=== PATIENT | male | born 1985 | race Caucasian/White ===

== ENCOUNTER 2021-03-22 05:47 | Emergency (ER) | payer SELFPAY ==
[~2021-03-22] VITALS: Ht 175.2 cm; Wt 68.9 kg
[2021-03-22 06:26] VITALS: BP 142/92
--- NOTE | 2021-03-22 07:00 | ED Integumentary General ---
General Chief Complaint: Skin/Wound Problems Stated Complaint: R LEG INFECTION / TIC BITE Nursing Triage Note: PATIENT STATES THAT 9 DAYS AGO, HE NOTICED A RED AREA ON HIS RIGHT CALF. 7 DAYS AGO HE WAS SEEN BY A DOCTOR WHO TOOK A TICK OUT OF THE AREA AND GAVE HIM AN ANTIBIOTIC SHOT. HE IS UNABLE TO RECALL THE NAME OF THE ANTIBIOTIC. OVER THE WEEKEND, THE WOUND HAS CONTINUED TO GET WORSE. Source: patient Exam Limitations: no limitations (ELVA ANGUIANO MED STUDENT) History of Present Illness Date Seen by Provider: March 22, 2021 Time Seen by Provider: 06:35 Initial Comments 35 y/o male presents with R lower leg lesion onset 9 days ago. 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 Pain caused him to go to [facility] in [place] where they pulled a tick out of his leg and gave him a shot in the buttocks (unsure of what was given). Patient states the now necrotic lesion has been increasing in size for the last days and pain now radiates from ankle to R sided abdomen. Pain is 1 or 2/10 at rest, 9/10 when walking or standing too long which also induces some swelling, better when laying still. He also reports R sided abdominal pain of unknown but recent onset which is negligible at baseline but significant with palpation. Denies any associated symptoms, including numbness, tingling, CP, palpitations, SOB, syncope, lightheadedness, change in mood, changes in vision, nausea or vomiting. Patient notes chronic diarrhea onset 4 years ago. (ELVA ANGUIANO MED STUDENT) Allergies and Home Medications Allergies Coded Allergies: No Known Drug Allergies (Unverified , 03/22/21) Patient Home Medication List Home Medication List Reviewed: Yes (CARLYN MARIANO MD) Review of Systems Review of Systems Constitutional: No dizziness, No fever EENTM: No blurred vision, No double vision Respiratory: No dyspnea on exertion, No short of breath Cardiovascular: No chest pain, No palpitations, No syncope Gastrointestinal: abdominal pain (R sided), diarrhea (chronic); No nausea, No vomiting Musculoskeletal: No back pain; other (R sided leg pain) Skin: change in color, lesions (RLE, necrotic) Psychiatric/Neurological: Denies Anxiety, Denies Depressed, Denies Headache Endocrine: Denies Excessive Sweating, Denies Flushing Hematologic/Lymphatic: Denies Easy Bleeding, Denies Swollen Glands (ELVA ANGUIANO STUDENT) Past Ntkawkt-Ypzlgu-Uycayw Hx Patient Social History Alcohol Use: Denies Use Smoking Status: Current Everyday Smoker Type Used: Cigarettes Recent Infectious Disease Expo: Yes (TICK) Recent Hopitalizations: No (ELVA ANGUIANO) Seasonal Allergies Seasonal Allergies: No (ELVA ANGUIANO) Past Medical History Surgeries: Yes (UMBILICAL HERNIA REPAIR, BLADDER TUMER REMOVED) Tonsillectomy Respiratory: No Cardiac: No Neurological: No Genitourinary: No Gastrointestinal: No Musculoskeletal: No Endocrine: No HEENT: No Cancer: No Psychosocial: No Integumentary: No Blood Disorders: No (ELVA ANGUIANO) Physical Exam Vital Signs Vital Signs - First Documented 03/22/21 06:26 Temp 36.3 Pulse 96 Resp 20 B/P (MAP) 142/92 (109) Pulse Ox 95 O2 Delivery Room Air (CARLYN MARIANO MD) Vital Signs Capillary Refill : Less Than 3 Seconds (ELVA ANGUIANO STUDENT) General Appearance: WD/WN, no apparent distress HEENT: PERRL/EOMI; No pale conjunctivae (R), No pale conjunctivae (L) Neck: non-tender, normal inspection Cardiovascular: normal peripheral pulses, regular rate, rhythm, no murmur Respiratory: chest non-tender, lungs clear, normal breath sounds Gastrointestinal: normal bowel sounds, guarding (significant, R sided); No hepatomegaly, No spleenomegaly Back: no CVA tenderness, no vertebral tenderness Extremities: normal range of motion, no pedal edema, normal capillary refill, calf tenderness (R sided, mild) Neurologic/Psychiatric: alert, normal mood/affect, oriented x 3; No aphasia, No facial droop, No motor weakness Skin: No diaphoresis; other (RLE [id number] necrotic lesion with 1cm surrounding ) Skin Problem Location: lower extremities (R leg, lower, lateral) Skin Problem Character: erythema, other (necrotic) Lymphatic: no adenopathy (ELVA ANGUIANO STUDENT) Progress/Results/Core Measures Results/Orders Lab Results Laboratory Tests Test 03/22/21 07:04 Range/Units White Blood Count 8.6 4.3-11.0 10^3/uL Red Blood Count 4.69 4.30-5.52 10^6/uL Hemoglobin 14.4 13.3-17.7 g/dL Hematocrit 42 40-54 % Mean Corpuscular Volume 90 80-99 fL Mean Corpuscular Hemoglobin 31 25-34 pg Mean Corpuscular Hemoglobin Concent 34 32-36 g/dL Red Cell Distribution Width 12.8 10.0-14.5 % Platelet Count 220 130-400 10^3/uL Mean Platelet Volume 10.3 9.0-12.2 fL Immature Granulocyte % (Auto) 0 % Neutrophils (%) (Auto) 54 42-75 % Lymphocytes (%) (Auto) 31 12-44 % Monocytes (%) (Auto) 8 0-12 % Eosinophils (%) (Auto) 6 0-10 % Basophils (%) (Auto) 1 0-10 % Neutrophils # (Auto) 4.6 1.8-7.8 10^3/uL Lymphocytes # (Auto) 2.7 1.0-4.0 10^3/uL Monocytes # (Auto) 0.7 0.0-1.0 10^3/uL Eosinophils # (Auto) 0.5 H 0.0-0.3 10^3/uL Basophils # (Auto) 0.1 0.0-0.1 10^3/uL Immature Granulocyte # (Auto) 0.0 0.0-0.1 10^3/uL D-Dimer 0.37 0.00-0.49 UG/ML Sodium Level 134 L 135-145 MMOL/L Potassium Level 4.4 3.6-5.0 MMOL/L Chloride Level 97 L 98-107 MMOL/L Carbon Dioxide Level 26 21-32 MMOL/L Anion Gap 11 5-14 MMOL/L Blood Urea Nitrogen 14 7-18 MG/DL Creatinine 1.01 0.60-1.30 MG/DL Estimat Glomerular Filtration Rate > 60 BUN/Creatinine Ratio 14 Glucose Level 595 *H 70-105 MG/DL Calcium Level 8.9 8.5-10.1 MG/DL Corrected Calcium 9.1 8.5-10.1 MG/DL Total Bilirubin 0.2 0.1-1.0 MG/DL Aspartate Amino Transf (AST/SGOT) 18 5-34 U/L Alanine Aminotransferase (ALT/SGPT) 23 0-55 U/L Alkaline Phosphatase 95 40-136 U/L C-Reactive Protein High Sensitivity 0.32 0.00-0.50 MG/DL Total Protein 6.6 6.4-8.2 GM/DL Albumin 3.7 3.2-4.5 GM/DL Lipase 11 8-78 U/L (CARLYN MARIANO MD) My Orders Orders - CARLYN MARIANO MD Ed Iv/Invasive Line Start (03/22/21 06:46) Monitor-Rhythm Ecg Trace Only (03/22/21 06:46) Cbc With Automated Diff (03/22/21 06:46) Comprehensive Metabolic Panel (03/22/21 06:46) Hs C Reactive Protein (03/22/21 06:46) Fibrin Degradation Products (03/22/21 06:46) Lipase (03/22/21 06:46) Ns Iv 1000 Ml (Sodium Chloride 0.9%) (03/22/21 08:00) (CARLYN MARIANO MD) Vital Signs/I&O 03/22/21 06:26 Temp 36.3 Pulse 96 Resp 20 B/P (MAP) 142/92 (109) Pulse Ox 95 O2 Delivery Room Air (CARLYN MARIANO MD) Blood Pressure Mean: 109 Progress Progress Note #1: Time: 07:47 Progress Note BS 595, D-Dimer negative, labs otherwise unremarkable. Will US gallbladder. Progress Note #2: Time: 08:01 Progress Note Nurse reports that patient became belligerent when told he would be receiving fluids. (ELVA ANGUIANO MED STUDENT) Progress Note : Progress Note Patient was seen and examined by me. Case was reviewed with medical student as well. Patient has a significant necrotic lesion on the right lateral calf. He also has right-sided abdominal pain and guarding on examination. It is unclear if these issues are related. I discussed the plan with the patient which included lab work and possible ultrasound of the abdomen. Although patient did not describe any chronic health problems, he was found to have a markedly elevated serum blood sugar. IV fluids were ordered and the ultrasound was o rdered as I had previously discussed with the patient. For unexplained reasons, patient suddenly became belligerent with nursing staff. He argued that he came only for the lesion on his leg and did not want his abdominal pain addressed or IV fluids. He used expletive language with the nurse and left AGAINST MEDICAL ADVICE before I could come discuss these issues with him further. Patient had been previously agreeable to this approach to his work-up when I discussed the plan with him. He gave no indication that he did not want his abdominal pain worked up or any treatments when I discussed the work-up with him personally. I did consult Dr. Jennings regarding the necrotic lesion and he recommended work-up of the abdominal pain and outpatient referral to his clinic for the skin necrosis. Labs were reviewed and were unremarkable except for hyperglycemia. Patient left before ultrasound could be obtained or IV fluids could be infused. (CARLYN MARIANO MD) Departure Impression Primary Impression: Skin necrosis Additional Impressions: Right sided abdominal pain Hyperglycemia Disposition: AGAINST MEDICAL ADVICE Condition: Against Medical Advice Medical Student Attestation and Attending Note: I have personally interviewed and examined this patient along with Elva Anguiano, MS 3. I have reviewed student documentation including history, physica l, and assessments. I agree with the documentation except where otherwise noted. Exam: General: Alert, oriented, no acute distress, well developed HEENT: Normocephalic and atraumatic Heart: Regular rate and rhythm without murmur Lungs: Clear to auscultation bilaterally with normal effort Abdomen: Soft, tender throughout the right upper and lower quadrants, guarding, no masses, nondistended, normal bowel sounds Neuropsych: Alert, oriented, no focal deficits Skin: Warm and dry without rashes, necrotic patch of skin on the right lateral lower leg measuring approximately 5 cm in diameter with erythematous edges. Tenderness in the right calf. Positive Homans' sign. (CARLYN MARIANO MD) ELVA ANGUIANO MED STUDENT March 22, 2021 07:00 CARLYN MARIANO MD March 22, 2021 09:22
[2021-03-22 07:14] LABS: BASOPHILS # (AUTO) 0.1 10^3/uL (0.0-0.1); BASOPHILS % (AUTO) 1 % (0-10); EOSINOPHILS # (AUTO) 0.5 10^3/uL (0.0-0.3); EOSINOPHILS % (AUTO) 6 % (0-10); HEMATOCRIT 42 % (40-54); HEMOGLOBIN 14.4 g/dL (13.3-17.7); LYMPHOCYTES # (AUTO) 2.7 10^3/uL (1.0-4.0); LYMPHOCYTES % (AUTO) 31 % (12-44); MEAN CORPUSCULAR HEMOGLOBIN 31 pg (25-34); MEAN CORPUSCULAR HGB CONC 34 g/dL (32-36); MEAN CORPUSCULAR VOLUME 90 fL (80-99); MEAN PLATELET VOLUME 10.3 fL (9.0-12.2); MONOCYTES # (AUTO) 0.7 10^3/uL (0.0-1.0); MONOCYTES % (AUTO) 8 % (0-12); NEUTROPHILS # (AUTO) 4.6 10^3/uL (1.8-7.8); NEUTROPHILS % (AUTO) 54 % (42-75); PLATELET COUNT 220 10^3/uL (130-400); WHITE BLOOD COUNT 8.6 10^3/uL (4.3-11.0)
[2021-03-22 07:28] LABS: ALBUMIN 3.7 GM/DL (3.2-4.5); CHLORIDE 97 MMOL/L (98-107); POTASSIUM 4.4 MMOL/L (3.6-5.0); SODIUM 134 MMOL/L (135-145)
[2021-03-22 07:30] LABS: CALCIUM 8.9 MG/DL (8.5-10.1)
[2021-03-22 07:31] LABS: TOTAL PROTEIN 6.6 GM/DL (6.4-8.2)
[2021-03-22 07:32] LABS: CARBON DIOXIDE 26 MMOL/L (21-32); GLUCOSE 595 MG/DL (70-105)
[2021-03-22 07:33] LABS: BILIRUBIN,TOTAL 0.2 MG/DL (0.1-1.0)
[2021-03-22 07:34] LABS: ALKALINE PHOSPHATASE 95 U/L (40-136); CREATININE SERUM 1.01 MG/DL (0.60-1.30); GFR ESTIMATED > 60
[2021-03-22 07:36] LABS: BUN/CREATININE RATIO 14
[2021-03-22 07:37] LABS: ALANINE AMINOTRANSFERASE 23 U/L (0-55)
[2021-03-22 07:38] LABS: LIPASE 11 U/L (8-78)
[2021-03-22] MEDS ORDERED: NS IV 1000 ML 1,000 ML IV SCH (08:00)
== END 2021-03-22 07:36 | disposition left against medical advice (07) ==
LOC: ER 05:50
DX: I96 Gangrene, not elsewhere classified (principal); R73.9 Hyperglycemia, unspecified; R10.9 Unspecified abdominal pain; F17.210 Nicotine dependence, cigarettes, uncomplicated
CPT/HCPCS: 36415; 80053; 83690; 85025; 85379; 86141; 93041